=== PATIENT | female | born 1955 | race Caucasian/White ===

== ENCOUNTER → 2019-07-24 | Day surgery (SDC) | payer MEDICARE ==
[~2019-07-24] VITALS: Ht 165.1 cm; Wt 59.4 kg
[~2019-07-24] MED LIST: IOHEXOL-350 100 ML VIAL IV ONE; IV NS 0.9% 250 ML IV ONE; IV NS 0.9% 500 ML IV PRN; METOPROLOL TARTRATE INJ 5 MG/5 ML AMPUL IVP PRN; METOPROLOL TARTRATE INJ 5 MG/5 ML AMPUL ONE; NITROGLYCERIN 0.4 MG/TAB BOTTLE ONE; NITROGLYCERIN 0.4 MG/TAB BOTTLE SL ONE
--- NOTE | 2019-07-24 13:35 | NUR ---
IV NS was not given.
[2019-07-24 13:36] VITALS: BP 118/67
== END | disposition home or self-care (01) ==
LOC: CT 10:39
PROVIDERS: ATTEND Internal Medicine Interventional Cardiology
DX: M47.814 Spondylosis without myelopathy or radiculopathy, thoracic region (principal)
CPT/HCPCS: 75574; J3490; J7050; Q9967